=== PATIENT | male | born 1960 | race Two or more races ===

== ENCOUNTER 2018-06-13 11:04 | Emergency (ER) | payer MEDICAID ==
[~2018-06-13] VITALS: Ht 165.1 cm; Wt 56.8 kg
[~2018-06-13 11:04] MED LIST: ALBU18HF2 INH; HYDR-3973 PO; LISI1TAB13 PO; QUET25TA PO; TRAZ-218 PO
[2018-06-13 11:45] LABS: BASOPHILS % (AUTO) 0.8 % (0-1); EOSINOPHILS # (AUTO) 0.1 X10'3 (0-0.9); EOSINOPHILS % (AUTO) 2.5 % (0-6); HEMATOCRIT 43.4 % (42.0-52.0); HEMOGLOBIN 14.5 g/dl (14.0-17.9); LYMPHOCYTES # (AUTO) 1.2 X10'3 (1.1-4.8); LYMPHOCYTES % (AUTO) 23.8 % (21-51); MEAN CORPUSCULAR HEMOGLOBIN 32.9 PG (27.0-31.0); MEAN CORPUSCULAR HGB CONC 33.4 g/dL (33.0-36.5); MEAN CORPUSCULAR VOLUME 98.4 FL (78-98); MEAN PLATELET VOLUME 7.6 FL (7.4-10.4); MONOCYTES # (AUTO) 0.4 X10'3 (0-0.9); MONOCYTES % (AUTO) 7.3 % (2-12); NEUTROPHILS # (AUTO) 3.4 X10'3 (1.8-7.7); NEUTROPHILS % (AUTO) 65.6 % (42-75); PLATELET COUNT 253 X10'3 (140-440); RED BLOOD COUNT 4.41 X10'6 (4.70-6.10); RED CELL DISTRIBUTION WIDTH 13.8 % (11.5-14.5); WHITE BLOOD COUNT 5.1 X10'3 (4.5-11.0)
[2018-06-13 11:55] LABS: ALANINE AMINOTRANSFERASE 29 U/L (12-78); ALBUMIN 3.3 G/DL (3.4-5.0); ALBUMIN/GLOBULIN RATIO 0.9 (1.1-1.5); ALKALINE PHOSPHATASE 96 IU/L (46-116); ANION GAP 5 (8-16); ASPARTATE AMINO TRANSFERASE 21 U/L (10-37); BILIRUBIN,TOTAL 0.1 MG/DL (0.1-1.0); BLOOD UREA NITROGEN 17 MG/DL (7-18); BUN/CREATININE RATIO 22.4 (5.4-32.0); CALCIUM 8.9 MG/DL (8.5-10.1); CHLORIDE 106 MMOL/L (99-107); CREATININE 0.76 MG/DL (0.60-1.10); ETHANOL < 0.010 GM/DL (0.0-0.010); GLUCOSE 86 MG/DL (70-104); POTASSIUM 4.7 MMOL/L (3.5-5.1); SODIUM 144 MMOL/L (135-145); TOTAL CARBON DIOXIDE 33.4 MMOL/L (24-32); TOTAL PROTEIN 7.1 G/DL (6.4-8.2); eGFR > 90 ML/MIN
[2018-06-13 12:55] LABS: URINE AMPHETAMINE SCREEN NEGATIVE (Neg); URINE BARBITUATE SCREEN NEGATIVE (Neg); URINE BENZODIAZEPINES SCREEN NEGATIVE (Neg); URINE CANNABINOID SCREEN NEGATIVE (Neg); URINE COCAINE SCREEN NEGATIVE (Neg); URINE METHADONE SCREEN NEGATIVE (Neg); URINE OPIATE SCREEN NEGATIVE (Neg); URINE PHENCYCLIDINE SCREEN NEGATIVE (Neg)
--- NOTE | 2018-06-13 13:03 | NUR ---
PT IS ALLERGIC TO OLIVES AND ORANGES
--- NOTE | 2018-06-13 13:30 | NUR ---
pt ate all of his lunch. is now resting in bed. pt is very cooperative, pleasant.
--- NOTE | 2018-06-13 14:08 | NUR ---
called to initiate telepsych consult.
--- NOTE | 2018-06-13 15:26 | NUR ---
pt is having telepsych consult now.
--- NOTE | 2018-06-13 16:13 | NUR ---
pt asked for coffee, was given a 2nd cup. pt is resting quietly now.
--- NOTE | 2018-06-13 16:56 | NUR ---
RECEIVED REPORT FROM ENID BELTRAN. Patient arrived to unit, sitting up on edge of bed, no signs of distress noted.
[2018-06-13] MEDS ORDERED: albuterol 2.5 MG/3 ML nebule NEB PRN (17:20)
[2018-06-13] MEDS: LORazepam 1 MG tablet PO PRN (17:53)
[2018-06-13] MEDS: HYDROcodone/acetaminophen 10/325mg tab PO PRN (19:19)
[2018-06-13] MEDS: sertraline 25mg tablet PO SCH (20:48)
[2018-06-13] MEDS: QUEtiapine 25mg tablet PO SCH (20:49)
[2018-06-13] MEDS ORDERED: traZODone 50mg tablet PO SCH (21:00)
--- NOTE | 2018-06-14 06:15 | NUR ---
RECIEVED REPORT FROM ENID WEAVER PT WANTED PAIN PILL FIRST THING HE STATES THAT IS HIS ROUTINE AT HOME
[2018-06-14] MEDS: lisinopril 20mg tablet PO SCH (07:04)
[2018-06-14] MEDS: HYDROchlorothiazide 25mg tablet PO SCH (07:04)
[2018-06-14] MEDS: HYDROcodone/acetaminophen 10/325mg tab PO PRN ×2 (07:04→20:18)
--- NOTE | 2018-06-14 08:15 | NUR ---
PT ASKED FOR ANXIETY MEDICATION , ADMINISTERED PER MD ORDER
[2018-06-14] MEDS: LORazepam 1 MG tablet PO PRN ×2 (09:06→17:11)
--- NOTE | 2018-06-14 10:15 | NUR ---
PT ASKED FOR CELL PHONE FROM LOCKER TO GET PHONE NUMBERS FOR [employer] OF HIS APARTMENTS BC HE HAD A MEETING SCHEDULED WITH THEM, WENT AND GOT PHONE WROTE DOWN THE NUMBERS FOR THE PT THEN PLACED BACK IN THE LOCKER BY THE TECHS
--- NOTE | 2018-06-14 12:30 | NUR ---
pt resting in bed , will continue to monitor
--- NOTE | 2018-06-14 14:30 | NUR ---
pt resting quieytly in bed
--- NOTE | 2018-06-14 16:30 | NUR ---
pt resting quietly in bed
--- NOTE | 2018-06-14 18:06 | NUR ---
Report given to ENID Branham
--- NOTE | 2018-06-14 18:27 | NUR ---
Assumed care. Pt sitting in bed eating dinner. Asking for pain meds but not due at this time. Will cont to monitor.
[2018-06-14] MEDS: QUEtiapine 25mg tablet PO SCH (20:19)
[2018-06-14] MEDS: sertraline 25mg tablet PO SCH (20:36)
--- NOTE | 2018-06-14 20:47 | NUR ---
Pt took NOC meds without issue. Pt now sleeping no distress noted. Will cont to monitor
--- NOTE | 2018-06-15 00:03 | NUR ---
Pt sleeping no apparent distress. Will cont to monitor.
--- NOTE | 2018-06-15 02:20 | NUR ---
Pt sleeping no apparent distress. Will cont to monitor.
--- NOTE | 2018-06-15 07:21 | NUR ---
Spoke with dr garcia regarding telepsyc recommendations to med changes. stated no change to meds or additional labs at this time. Order to continue home prozac dose of 60mg qd. Order placed will admin once available.
[2018-06-15] MEDS: HYDROchlorothiazide 25mg tablet PO SCH (07:26)
[2018-06-15] MEDS: HYDROcodone/acetaminophen 10/325mg tab PO PRN ×2 (07:27→20:15)
[2018-06-15] MEDS: lisinopril 20mg tablet PO SCH (07:27)
[2018-06-15] MEDS: FLUoxetine 20mg capsule PO SCH (07:31)
[2018-06-15] MEDS: LORazepam 1 MG tablet PO PRN ×3 (09:02→20:15)
--- NOTE | 2018-06-15 09:15 | NUR ---
PT SITTING UP IN BED. NO DISTRESS NOTED.
--- NOTE | 2018-06-15 10:05 | NUR ---
PT MAKING BED. STEADY GAIT. NO ASSISTANCE NEEDED.
--- NOTE | 2018-06-15 11:32 | NUR ---
PT SITTING UP IN BED READING MAGAZINE. NO DISTRESS NOTED. WILL CONTINUE TO MONITOR.
--- NOTE | 2018-06-15 14:06 | NUR ---
PT REQUESTED TO SPEAK TO DR SCHERER REGARDING HIS MEDICATIONS. NOTIFIED DR. SCHERER. STATED WILL COME AND SPEAK TO PT.
--- NOTE | 2018-06-15 18:59 | NUR ---
Assumed care pt found resting in bed no apparent distress. Will cont to monitor
[2018-06-15] MEDS: quetiapine 100mg tablet PO SCH (20:16)
[2018-06-15] MEDS: sertraline 25mg tablet PO SCH (20:16)
--- NOTE | 2018-06-15 20:59 | NUR ---
Pt sleeping at this time. No apparent distress. Mental health will see pt tomorrow when she is more awake and lucid. Will cont to monitor
--- NOTE | 2018-06-16 01:15 | NUR ---
Pt sleeping will cont to monitor
--- NOTE | 2018-06-16 03:07 | NUR ---
Pt sleeping will cont to monitor
[2018-06-16] MEDS: HYDROcodone/acetaminophen 10/325mg tab PO PRN ×2 (07:51→19:16)
[2018-06-16] MEDS: HYDROchlorothiazide 25mg tablet PO SCH (07:52)
[2018-06-16] MEDS: lisinopril 20mg tablet PO SCH (07:53)
[2018-06-16] MEDS: FLUoxetine 20mg capsule PO SCH (07:55)
[2018-06-16] MEDS: LORazepam 1 MG tablet PO PRN ×2 (10:02→18:03)
--- NOTE | 2018-06-16 16:43 | NUR ---
Nursing Note: Pt laying in bed on back; requested warm blanket; resting comfortably. RR even/unlabored. No s/s distress noted
--- NOTE | 2018-06-16 18:12 | NUR ---
NURSE NOTE: pt administered Ativan 1 mg per order. Pt resting comfortably in bed. No s/s distress noted at this time.
[2018-06-16] MEDS: quetiapine 100mg tablet PO SCH (19:15)
[2018-06-16] MEDS: sertraline 25mg tablet PO SCH (19:15)
--- NOTE | 2018-06-16 23:00 | NUR ---
Pt sleeping quietly in bed on his back, snoring lightly. Respirations even and unlabored.
--- NOTE | 2018-06-17 00:31 | NUR ---
Pt sat up and looked around at his environment. Pt sat quietly for approx 20 min then fell asleep on his back. Respirations even and unlabored.
--- NOTE | 2018-06-17 02:08 | NUR ---
Pt sleeping on left side. Respirations even and unlabored.
--- NOTE | 2018-06-17 04:09 | NUR ---
Pt sleeping on left side. Respirations even and unlabored.
[2018-06-17] MEDS: HYDROcodone/acetaminophen 10/325mg tab PO PRN ×2 (06:01→18:11)
--- NOTE | 2018-06-17 06:29 | NUR ---
PT HYPOTENSIVE AT 85/49 :HR 61. ER AWARE.
--- NOTE | 2018-06-17 06:40 | NUR ---
Received report from ENID Santacruz. Patient resting comfortably in bed at this time.
--- NOTE | 2018-06-17 06:58 | NUR ---
Patient's norco was not re-assessed on the and I was not here when the re-asssessment was due.
--- NOTE | 2018-06-17 07:30 | NUR ---
Patients blood pressure is 72/41 with the automatic cuff. Patient is asymptomatic but I will hold off on his blood pressure medications and let the MD know.
[2018-06-17] MEDS: lisinopril 20mg tablet PO SCH (08:00)
[2018-06-17] MEDS: HYDROchlorothiazide 25mg tablet PO SCH (08:00)
--- NOTE | 2018-06-17 08:00 | NUR ---
Re-checked patients' blood pressure with a manual and it was 80/50. The patient has also been asking for Ativan but with his pressure low I haven't given him any. I notified Dr. Lopez and asked him about the Ativan and he said to hold off. He also said to hold the blood pressure medications and re-evaluate.
[2018-06-17] MEDS: FLUoxetine 20mg capsule PO SCH (08:10)
--- NOTE | 2018-06-17 09:45 | NUR ---
Patients' blood pressure was checked again becuase he is wanting Ativan. I explained why he couldn't have it earlier so we waited and re-checked his pressure. It is now 80/44. He went back to his room and went to sleep. I re-iterated that he still can't have the Ativan with a BP that is that low.
--- NOTE | 2018-06-17 10:07 | NUR ---
PT IS REQUESTING ATIVAN OR SERAQUEL, I EXPLAINED TO PT THAT WITH A BP OF 80/50 THAT HE CAN NOT HAVE THE MEDICATION NOW.
--- NOTE | 2018-06-17 10:35 | NUR ---
PT SLEEPING LAYING ON HIS RIGHT SIDE, RESPIRATIONS EVEN AND UNLABORED. NO DISTRESS NOTED AT THIS TIME.
--- NOTE | 2018-06-17 12:35 | NUR ---
Marissa went and got a different vitals machine because his BP was still low. The new machine read 101/52 so I gave him the Ativan. I think the issue is his medication reconciliation. His med-rec says he takes 25mg of hydochlorothiazide and 20mg of Lisinopril, but he says that he only takes 5mg of Lisinopril and his medication tracker also says he's only picked up a 5mg prescription for Lisinopril in the past. Will discuss with the MD.
[2018-06-17] MEDS: LORazepam 1 MG tablet PO PRN (12:44)
[2018-06-17] MEDS ORDERED: LISI-642 PO (14:54)
--- NOTE | 2018-06-17 18:33 | NUR ---
Patient report given to ENID Arellano.
--- NOTE | 2018-06-17 19:05 | NUR ---
Patient asked for seroquel for sleep; informed patient that it will be given when its due. Patient verbalized understanding.
[2018-06-17] MEDS: quetiapine 100mg tablet PO SCH (20:10)
[2018-06-17] MEDS: sertraline 25mg tablet PO SCH (20:10)
--- NOTE | 2018-06-17 20:35 | NUR ---
Patient got up to throw his blanket in the laundry bin; advised to let us know when he gets up or out of bed.
--- NOTE | 2018-06-17 22:10 | NUR ---
Patient resting comfortably with 16 even and unlabored respirations.
--- NOTE | 2018-06-17 23:55 | NUR ---
Patient resting comfortably, in no apparent distress.
--- NOTE | 2018-06-18 01:07 | NUR ---
Pt asleep on left side. RR 13, even and unlabored. No apparent distress at this time.
--- NOTE | 2018-06-18 02:09 | NUR ---
Patient laying on left side, 16 even and unlabored respirations.
--- NOTE | 2018-06-18 03:35 | NUR ---
Patient laying supine with eyes closed, 16 even and unlabored respirations. In no apparent distress.
--- NOTE | 2018-06-18 04:52 | NUR ---
Patient asleep with 14 even and unlabored respirations. In no apparent distress.
[2018-06-18] MEDS: HYDROcodone/acetaminophen 10/325mg tab PO PRN ×2 (05:44→18:11)
--- NOTE | 2018-06-18 06:19 | NUR ---
Reported off to ENID Moore. Patient resting comfortably
--- NOTE | 2018-06-18 06:26 | NUR ---
Assumed care of patient. Patient sleeping in bed, respirations even. No distress noted.
--- NOTE | 2018-06-18 07:19 | NUR ---
Patient awake and states he is starting to feel agitated, requesting ativan. Patient ambulated to restroom with steady gait. Patient sitting up in bed.
[2018-06-18] MEDS: LORazepam 1 MG tablet PO PRN ×2 (07:24→16:32)
[2018-06-18] MEDS: FLUoxetine 20mg capsule PO SCH (07:24)
--- NOTE | 2018-06-18 10:07 | NUR ---
Patient reading magazines in bed, calm and no other needs at this time.
--- NOTE | 2018-06-18 10:52 | NUR ---
Patient given snack per request.
[2018-06-18] MEDS ORDERED: HYDROcodone/acetaminophen 10/325mg tab PO PRN (11:05)
--- NOTE | 2018-06-18 12:04 | NUR ---
Patient awake sitting in bed. occassionally ambulates to restroom with steady gait. no needs at this time.
--- NOTE | 2018-06-18 14:44 | NUR ---
Patient ate lunch and sitting in bed talking with staff. Patient calm and cooperative. Patient denies any need at this time.
--- NOTE | 2018-06-18 16:27 | NUR ---
Patient requesting ativan, states, "I'm feeling anxious." patient sitting up in bed, walks to restroom often. Patient cooperative.
--- NOTE | 2018-06-18 17:00 | NUR ---
Patient awake in bed comfortable, no needs at this time.
[2018-06-18] MEDS: quetiapine 100mg tablet PO SCH (20:19)
[2018-06-18] MEDS: sertraline 25mg tablet PO SCH (20:19)
[2018-06-18] MEDS: QUEtiapine 25mg tablet PO SCH (20:24)
[2018-06-18] MEDS: traZODone 50mg tablet PO SCH (20:24)
--- NOTE | 2018-06-18 20:25 | NUR ---
Patient states he does not take trazodone and only takes 400mg of seroquel. Trazodone will be held at the patient's request. He will also be given his regularly given 400mg of seroquel rather than 450mg. Dr. Fong ordered this medication but it is unclear why and was not presented to me in report. The patient whishes to take his usual dose.
--- NOTE | 2018-06-18 20:42 | NUR ---
Patient is resting comfortably in bed.
--- NOTE | 2018-06-18 20:55 | NUR ---
Patient was found to be attempting to take belongings from sitter in the next room through the curtains. Patient states, "I thought it was my stuff." Belongings procured and patient instructed that his belongings are locked away.
--- NOTE | 2018-06-18 22:37 | NUR ---
Patient sitting upright in bed quietly.
--- NOTE | 2018-06-18 23:21 | NUR ---
Patient remains awake, lying quietly in bed.
--- NOTE | 2018-06-19 01:13 | NUR ---
PATIENT SITTING WITH HOB AT 30 DEGREES NO COVERS EYES CLOSED RR EVEN UN LABORED NO S/S OF ACUTE STRESS AT THIS TIME
--- NOTE | 2018-06-19 03:12 | NUR ---
PATIENT LYING SUPINE IN BED NO COVERS EYES CLOSED RR EVEN UN -LABORED NO OBSERVABLE S/S OF ACUTE STRESS AT THIS TIME
--- NOTE | 2018-06-19 05:13 | NUR ---
PATIENT LYING ON RIGHT SIDE IN BED NO COVERS EYES CLOSED RR EVEN UN LABORED NO OBSERVABLE S/S OF ACUTE STRESS AT THIS TIME
--- NOTE | 2018-06-19 05:51 | NUR ---
PATIENT UP TO USE THE REST ROOM
[2018-06-19] MEDS: HYDROcodone/acetaminophen 10/325mg tab PO PRN ×2 (06:41→19:16)
[2018-06-19] MEDS: LORazepam 1 MG tablet PO PRN ×2 (06:41→17:49)
[2018-06-19] MEDS: FLUoxetine 20mg capsule PO SCH (07:40)
[2018-06-19] MEDS: lisinopril 5mg tablet PO SCH (07:40)
--- NOTE | 2018-06-19 13:04 | NUR ---
PT TX FROM ER14 TO OF.
[2018-06-19] MEDS: sertraline 25mg tablet PO SCH (20:16)
[2018-06-19] MEDS: QUEtiapine 25mg tablet PO SCH (20:16)
[2018-06-19] MEDS: quetiapine 100mg tablet PO SCH (20:17)
[2018-06-19] MEDS: traZODone 50mg tablet PO SCH (20:17)
--- NOTE | 2018-06-19 20:52 | NUR ---
PT IS SLEEPING ON RIGHT SIDE.
--- NOTE | 2018-06-19 21:49 | NUR ---
PT'S BED IS AT 30DEGREES, PT APPEARS TO BE SLEEPING ON LEFT SIDE, RR UNLABORED.
--- NOTE | 2018-06-19 23:13 | NUR ---
pt is asleep, rr 14 unlabored
--- NOTE | 2018-06-20 00:41 | NUR ---
pt was up to use the restroom, back to bed afterwards
--- NOTE | 2018-06-20 02:58 | NUR ---
pt sleeping on back with head of bed at 30 degrees. pt's rr is normal, unlabored.
--- NOTE | 2018-06-20 05:17 | NUR ---
pt is sleeping, rr unlabored, will continue to monitor.
[2018-06-20] MEDS ORDERED: QUET50TA15 PO (06:40)
[2018-06-20] MEDS ORDERED: QUET300T3 PO (06:40)
[2018-06-20] MEDS ORDERED: FLUO40CA PO (06:42)
[2018-06-20] MEDS: HYDROcodone/acetaminophen 10/325mg tab PO PRN ×2 (06:48→18:52)
--- NOTE | 2018-06-20 06:56 | NUR ---
PT AMBULATED WITH STEADY GAIT TO NURSES STATION INQUIRING ABOUT PAIN MEDICATIONS, PT MEDICATED WITH PAIN MEDICATIONS PER ORDERS.
--- NOTE | 2018-06-20 07:57 | NUR ---
TELEPSYCH DR SHAH SPEAKING WITH PT VIA TELEPSYCH MONITOR NOW TO EVALUATE AND MAKE RECOMMENDATION OF MEDICATIONS
--- NOTE | 2018-06-20 08:17 | NUR ---
PT JAKEHED SPEAKING WITH TELEPSYCH DOCTOR AND IS NOW SITTING UP IN BED EATING BREAKFAST. WILL MEDICATE PT AFTER I HAVE SPOKEN WITH PSYCH DOCTOR REGARDING MEDICATION RECOMMENDATIONS
[2018-06-20] MEDS ORDERED: LORA1TAB PO (08:26)
[2018-06-20] MEDS ORDERED: PRAZ2CAP2 PO (08:27)
[2018-06-20] MEDS ORDERED: ALBU8HFA PO (08:42)
[2018-06-20] MEDS ORDERED: QUET-1 PO (08:44)
[2018-06-20] MEDS ORDERED: FLUO20CA39 PO (08:45)
--- NOTE | 2018-06-20 08:48 | NUR ---
CALLED [facility] [phone] DR ADRIAN PT CASE MANAGED FOR PSYCH DOCTOR OFFICE, CONFIRMED CURRENT MEDICATIONS PT IS TAKING, ALSO SPOKE WITH DR SHAH TELEPSYCH DOCTOR AND SHE IS RECOMMENDING MEDICATIONS TO REMAIN THE SAME WHAT PT HAS BEEN TAKING, TAPER ZOLOFT 25 MG TONIGHT AND THEN DISCONTINUE. GAVE TO DR HO TO SIGN AND WILL FAX TO PHARMACY.
[2018-06-20] MEDS: lisinopril 5mg tablet PO SCH (09:06)
[2018-06-20] MEDS: FLUoxetine 20mg capsule PO SCH (09:06)
--- NOTE | 2018-06-20 09:52 | NUR ---
MARY WITH [facility] DISCUSSED [facility] PT THAT HE MAY BE RELEASED TOMORROW TO GO TO PREVIOUSLY SCHEDUELED PSYCH DOCTOR APPOINTMENT. PT CURRENTLY DENIES SI.
[2018-06-20] MEDS: LORazepam 1 MG tablet PO PRN ×2 (09:56→18:53)
--- NOTE | 2018-06-20 09:58 | NUR ---
PT REPORTS FEELING INCREASED ANXIETY, MEDICATED PT WITH 1 MG PRN ATIVAN PER ORDERS.
--- NOTE | 2018-06-20 10:10 | NUR ---
FAXED CORRECTED AND COMPLETELY UP TO DATE AFTER SPEAKING WITH PSYCH DOCOTOR'S SEARCH LEAD, AND TELEPSYCH RECOMMENDATION/REVIEW.
[2018-06-20] MEDS ORDERED: LORazepam 1 MG tablet PO PRN (10:15)
[2018-06-20] MEDS ORDERED: PROAIR PO PRN (10:15)
--- NOTE | 2018-06-20 10:59 | NUR ---
CALLED PHARMACIST TO HAVE TRAZADONE REMOVED IT WAS NOT ON MOST RECENT MED REC PT HAS NOT BEEN TAKING FOR SOME TIME NOW.
--- NOTE | 2018-06-20 12:08 | NUR ---
PT HAS APPOINTMENT WITH DR ADRIAN TOMORROW AT 1300 PER MARY WITH [facility]
--- NOTE | 2018-06-20 12:35 | NUR ---
RELIEVING RN FOR LUNCH, PT IS RESTING QUIETLY ON BED, AWAKE, CALM AND COOPERATIVE, RESP EVEN AND UNLABORED
--- NOTE | 2018-06-20 15:13 | NUR ---
PT SITTING UP IN BED, NO S/S OF DISTRESS, DISCOMFORT OR AGITATION AT THIS TIME.
--- NOTE | 2018-06-20 17:41 | NUR ---
REVIEWED PT NORCO AND ATIVAN TIME FRAME, DISCUSSED WITH PT TO GIVE BOTH OF THOSE MEDICATONS AT 1850, PT IS AGREEABLE TO PLAN WILL RELAY THAT TO NIGHT NURSE.
--- NOTE | 2018-06-20 18:33 | NUR ---
Patient is A&O x3, MIRANDA and is appropriate, he is sitting up in bed eating dinner w/o problem. I will continue to monitor.
[2018-06-20] MEDS ORDERED: sertraline 25mg tablet PO ONE (20:00)
[2018-06-20] MEDS: prazosin 1mg capsule PO SCH (20:09)
[2018-06-20] MEDS: quetiapine 100mg tablet PO SCH (20:10)
[2018-06-20] MEDS: QUEtiapine 25mg tablet PO SCH (20:11)
[2018-06-20] MEDS ORDERED: quetiapine 100mg tablet PO SCH (21:00)
[2018-06-21] MEDS: HYDROcodone/acetaminophen 10/325mg tab PO PRN (05:34)
[2018-06-21 05:47] VITALS: BP 114/83
[2018-06-21] MEDS: lisinopril 5mg tablet PO SCH (07:14)
[2018-06-21] MEDS: prazosin 1mg capsule PO SCH (07:14)
[2018-06-21] MEDS: FLUoxetine 20mg capsule PO SCH (07:14)
[2018-06-21] MEDS: LORazepam 1 MG tablet PO PRN (07:16)
[2018-06-21] MEDS ORDERED: FLUoxetine 20mg capsule PO SCH (08:00)
== END 2018-06-21 12:29 | disposition home or self-care (01) ==
LOC: ER 11:05
DX: R45.851 Suicidal ideations (principal); F32.9 Major depressive disorder, single episode, unspecified; I10 Essential (primary) hypertension; F28 Other psychotic disorder not due to a substance or known physiological condition; F15.90 Other stimulant use, unspecified, uncomplicated; Z98.890 Other specified postprocedural states; Z79.899 Other long term (current) drug therapy; Z88.8 Allergy status to other drugs, medicaments and biological substances
CPT/HCPCS: 36415; 80053; 80305; 80320; 85025; 99285

== ENCOUNTER 2019-09-12 10:07 | Emergency (ER) | payer MEDICAID ==
[~2019-09-12] VITALS: Ht 175.3 cm; Wt 52.7 kg
[~2019-09-12 10:07] MED LIST changes: -ALBU18HF2 INH; +ALBU8HFA PO; +FLUO20CA39 PO; +LISI-642 PO; -LISI1TAB13 PO; +LORA1TAB PO; +PRAZ2CAP2 PO; +QUET-1 PO; -QUET25TA PO; -TRAZ-218 PO
[2019-09-12 11:00] LABS: BASOPHILS # (AUTO) 0.1 X10'3 (0-0.2); EOSINOPHILS # (AUTO) 0.1 X10'3 (0-0.9); EOSINOPHILS % (AUTO) 0.7 % (0-6); HEMATOCRIT 44.2 % (42.0-52.0); HEMOGLOBIN 14.7 g/dl (14.0-17.9); LYMPHOCYTES # (AUTO) 1.3 X10'3 (1.1-4.8); LYMPHOCYTES % (AUTO) 16.2 % (21-51); MEAN CORPUSCULAR HEMOGLOBIN 33.1 PG (27.0-31.0); MEAN CORPUSCULAR HGB CONC 33.2 g/dL (33.0-36.5); MEAN CORPUSCULAR VOLUME 99.8 FL (78-98); MONOCYTES # (AUTO) 0.5 X10'3 (0-0.9); MONOCYTES % (AUTO) 5.5 % (2-12); NEUTROPHILS # (AUTO) 6.3 X10'3 (1.8-7.7); NEUTROPHILS % (AUTO) 76.6 % (42-75); PLATELET COUNT 513 X10'3 (140-440); RED BLOOD COUNT 4.43 X10'6 (4.70-6.10); WHITE BLOOD COUNT 8.3 X10'3 (4.5-11.0)
[2019-09-12 11:12] LABS: ALANINE AMINOTRANSFERASE 72 U/L (12-78); ALBUMIN 3.2 G/DL (3.4-5.0); ALBUMIN/GLOBULIN RATIO 0.7 (1.1-1.5); ALKALINE PHOSPHATASE 403 IU/L (46-116); ANION GAP 5 (8-16); ASPARTATE AMINO TRANSFERASE 25 U/L (10-37); BILIRUBIN,TOTAL 0.4 MG/DL (0.1-1.0); BLOOD UREA NITROGEN 12 MG/DL (7-18); BUN/CREATININE RATIO 10.5 (5.4-32.0); CALCIUM 9.1 MG/DL (8.5-10.1); CHLORIDE 104 MMOL/L (99-107); CREATININE 1.14 MG/DL (0.60-1.10); GLUCOSE 99 MG/DL (70-104); POTASSIUM 3.9 MMOL/L (3.5-5.1); SODIUM 138 MMOL/L (135-145); TOTAL CARBON DIOXIDE 29.4 MMOL/L (24-32); eGFR 66 ML/MIN
[2019-09-12 11:21] LABS: ETHANOL < 0.010 GM/DL (0.0-0.010)
[2019-09-12 12:17] LABS: CLARITY,URINE SLIGHTLY CLOUDY (Clear); COLOR,URINE YELLOW (Yellow); GLUCOSE, URINE NEGATIVE (Neg); KETONES,URINE TRACE mg/dl (Neg); LEUKOCYTE ESTERASE ,URINE NEGATIVE (Neg); NITRITES, URINE NEGATIVE (Neg); OCCULT BLOOD,URINE LARGE (Neg); PROTEIN,URINE NEGATIVE (Neg); UROBILINOGEN,URINE 0.2 E.U/dL (0.2-1.0)
[2019-09-12 12:26] LABS: UA COLLECTION TYPE URINAL
[2019-09-12 12:27] LABS: CELLULAR CAST 0-4 /LPF (NEGATIVE); HYALINE CASTS 0-3 /LPF (NEGATIVE); MUCUS STRANDS MANY /LPF (Neg); SQUAMOUS EPITHELIAL CELL,UR FEW /LPF (FEW)
[2019-09-12 12:28] LABS: BACTERIA,URINE 1+ /HPF (Neg); WBC,URINE 0-4 /HPF (0-4)
[2019-09-12] MEDS ORDERED: SULF1TAB49 PO (12:28)
[2019-09-12] MEDS ORDERED: CIPR750T4 PO (12:28)
[2019-09-12 12:29] LABS: URINE AMPHETAMINE SCREEN NEGATIVE (Neg); URINE BARBITUATE SCREEN NEGATIVE (Neg); URINE BENZODIAZEPINES SCREEN POSITIVE (Neg); URINE CANNABINOID SCREEN POSITIVE (Neg); URINE COCAINE SCREEN NEGATIVE (Neg); URINE METHADONE SCREEN NEGATIVE (Neg); URINE OPIATE SCREEN POSITIVE (Neg); URINE PHENCYCLIDINE SCREEN NEGATIVE (Neg)
[2019-09-12] MEDS ORDERED: MORP10CA11 PO (12:34)
[2019-09-12] MEDS ORDERED: TRAZ300T2 PO (13:01)
[2019-09-12] MEDS ORDERED: HYDR-4353 PO (13:01)
[2019-09-12] MEDS ORDERED: PRAZ1CAP2 PO (13:02)
--- NOTE | 2019-09-12 13:09 | NUR ---
pt sent to [facility] rec completed.
[2019-09-12] MEDS ORDERED: VAL5T PO (13:24)
[2019-09-12] MEDS ORDERED: HYDR-3973 PO (13:24)
--- NOTE | 2019-09-12 13:25 | NUR ---
Patient sleeping. RN asked patient where his medication is since he hasn't taken it in 2 days. Patient states it is in his safe. RN asked patient why he hasn't taken it. Patient states it's not working. But patient is asking for pain medication which is the same medication patient is taking. RN wondering if patient is really over taking meds and he is out of pain meds. RN verified meds from [facility], narcotics from Dr. Benavidez. Patient is also getting Diazepam from Dr. Mcneal. Continue to monitor.
[2019-09-12] MEDS ORDERED: MORP-92 PO (13:27)
[2019-09-12] MEDS: HYDROcodone/acetaminophen 10/325mg tab PO PRN ×2 (15:05→20:14)
--- NOTE | 2019-09-12 16:56 | NUR ---
RN called and verified Prazosin and Trazodone dose, Lynn Culp [phone]. Added to meds. Patient is feeling a little anxious. RN to give Valium to patient.
[2019-09-12] MEDS: diazepam 5mg tablet PO PRN (17:01)
--- NOTE | 2019-09-12 17:05 | NUR ---
Patient states he is still feeling suicidal. Patient calm. No plan at this time. Continue to monitor.
[2019-09-12] MEDS: sulfamethoxazole/trimethoprim DS (800/160mg) tablet PO SCH (20:13)
[2019-09-12] MEDS: traZODone 150mg tablet PO SCH (20:13)
[2019-09-12] MEDS: prazosin 1mg capsule PO SCH (20:13)
[2019-09-12] MEDS: ciprofloxacin 250mg tablet PO SCH (22:00)
--- NOTE | 2019-09-12 22:09 | NUR ---
RELIEVING PRIMARY RNJOSIE. PT APPEARS TO BE SLEEPING , CURRENTLY LYING ON HIS LEFT SIDE WITH BLANKETS COVERING TO HIS SHOULDERS. RR 14 AND UNLABORED. SITTER AND RN WITHIN VIEW OF PT AAT.
--- NOTE | 2019-09-12 22:23 | NUR ---
PT APPEARS TO BE SLEEPING, NO S/S DISTRESS NOTED.
--- NOTE | 2019-09-12 23:00 | NUR ---
PT APPEARS TO BE SLEEPING, NO S/S DISTRESS NOTED.
--- NOTE | 2019-09-13 00:06 | NUR ---
PT IS SLEEPING, NO S/S OF DISTRESS NOTED.
--- NOTE | 2019-09-13 01:35 | NUR ---
pt appears to be sleeping, no s/s of distress noted.
--- NOTE | 2019-09-13 07:00 | NUR ---
Pt came up to nurses station requesting pain medication. Stated to pt that pain medication was due at 0800.
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
--- NOTE | 2019-09-13 07:25 | NUR ---
Pt now requesting coffee. Informed him it would come with his breakfast.
[2019-09-13] MEDS: morphine ER 15mg tablet PO SCH (07:48)
[2019-09-13] MEDS: sulfamethoxazole/trimethoprim DS (800/160mg) tablet PO SCH ×2 (07:48→20:17)
[2019-09-13] MEDS: ciprofloxacin 250mg tablet PO SCH ×2 (10:11→22:06)
[2019-09-13] MEDS: HYDROcodone/acetaminophen 10/325mg tab PO PRN ×2 (10:11→16:05)
[2019-09-13] MEDS: diazepam 5mg tablet PO PRN (16:08)
--- NOTE | 2019-09-13 16:14 | NUR ---
Patient reclining in bed. No distress observed. Pain just given pain and anti-anxiety med. Continue to monitor.
--- NOTE | 2019-09-13 19:23 | NUR ---
Pt moved from Overflow to ED bed 14, assumed care of the patient. Pt is calm and cooperative.
[2019-09-13] MEDS: prazosin 1mg capsule PO SCH (20:17)
[2019-09-13] MEDS: traZODone 150mg tablet PO SCH (20:18)
--- NOTE | 2019-09-13 20:22 | NUR ---
Pt resting, no complaints other than wanting more pain medication.
--- NOTE | 2019-09-13 21:20 | NUR ---
Pt resting with even and unlabored respirations.
--- NOTE | 2019-09-13 22:24 | NUR ---
Pt ambulatory with steady gait to the restroom. Pt is requesting additional pain medication. Explainted to the patient that the next dose is not due until midnight.
[2019-09-14] MEDS: HYDROcodone/acetaminophen 10/325mg tab PO PRN ×4 (01:20→22:26)
--- NOTE | 2019-09-14 01:20 | NUR ---
PT MEDICATED FOR RIB PAIN WITH PRN NORCO. HE IS ALSO GIVEN WARM BLANKETS. PT DENIES OTHER NEEDS AT THIS TIME. WILL CONTINUE TO MONITOR.
--- NOTE | 2019-09-14 05:49 | NUR ---
NO ISSUES OVERNIGHT. PT WAS POLITE AND COOPERATIVE WITH STAFF. HE SLEPT ALL NIGHT AWAKENING ONCE FOR PAIN MEDICATION.
[2019-09-14] MEDS: morphine ER 15mg tablet PO SCH (08:12)
[2019-09-14] MEDS: sulfamethoxazole/trimethoprim DS (800/160mg) tablet PO SCH ×2 (08:12→20:12)
[2019-09-14] MEDS: ciprofloxacin 250mg tablet PO SCH ×2 (09:09→22:27)
--- NOTE | 2019-09-14 10:27 | NUR ---
pt moved from room 14 to 26 recived report assumed care
--- NOTE | 2019-09-14 12:24 | NUR ---
pt up walking around asking for pain meds informed him that it is not quite time and asking for food offered some snacks and informed him lunch should be here any min. he was ok with that and went back to his bed
--- NOTE | 2019-09-14 16:30 | NUR ---
norco was given for pain pt now in bed resting rise and fall of chest noted
--- NOTE | 2019-09-14 17:19 | NUR ---
up walking around asking for something to read
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
[2019-09-14] MEDS: lactobacillus rhamnosus 10,000 MMU CELLS/CAPSULE PO SCH (20:12)
[2019-09-14] MEDS: prazosin 1mg capsule PO SCH (20:13)
[2019-09-14] MEDS: traZODone 150mg tablet PO SCH (20:13)
--- NOTE | 2019-09-14 22:59 | NUR ---
Patient is sleeping again. Mid fowlers position in bed.
--- NOTE | 2019-09-15 04:34 | NUR ---
Patient is sleeping on his right side.
[2019-09-15] MEDS: sulfamethoxazole/trimethoprim DS (800/160mg) tablet PO SCH ×2 (07:02→20:21)
[2019-09-15] MEDS: morphine ER 15mg tablet PO SCH (07:03)
[2019-09-15] MEDS: lactobacillus rhamnosus 10,000 MMU CELLS/CAPSULE PO SCH ×2 (07:03→20:21)
--- NOTE | 2019-09-15 08:01 | NUR ---
resting in bed
[2019-09-15] MEDS: HYDROcodone/acetaminophen 10/325mg tab PO PRN ×3 (08:27→20:21)
[2019-09-15] MEDS: ciprofloxacin 250mg tablet PO SCH ×2 (09:31→21:19)
[2019-09-15] MEDS: diazepam 5mg tablet PO PRN (09:31)
--- NOTE | 2019-09-15 09:37 | NUR ---
Patient reported anxiety. RN gave patient his PRN Valium. Continue to monitor.
--- NOTE | 2019-09-15 14:01 | NUR ---
Resting in bed ate lunch
--- NOTE | 2019-09-15 17:03 | NUR ---
In bed resting
[2019-09-15] MEDS: traZODone 150mg tablet PO SCH (20:21)
[2019-09-15] MEDS: prazosin 1mg capsule PO SCH (21:20)
--- NOTE | 2019-09-16 04:00 | NUR ---
ASSUMED CARE FROM TINA ROSSI. PT CONTINUES TO REST COMFORTABLY WITH NO SIGNS OF DISTRESS NOTED. RR REGULAR. WILL CONTINUE TO MONITOR.
--- NOTE | 2019-09-16 05:19 | NUR ---
PT CONTINUES TO SLEEP AND DOES NOT APPEAR TO BE IN ANY DISTRESS. RR REGULAR. WILL CONTINUE TO MONITOR.
--- NOTE | 2019-09-16 06:35 | NUR ---
Patient asking for pain medication. No distress observed. Continue to monitor.
[2019-09-16] MEDS: HYDROcodone/acetaminophen 10/325mg tab PO PRN ×3 (06:54→20:42)
--- NOTE | 2019-09-16 08:35 | NUR ---
Patient calm and resting in room. No distress observed. Continue to monitor.
[2019-09-16] MEDS: lactobacillus rhamnosus 10,000 MMU CELLS/CAPSULE PO SCH ×2 (08:39→20:40)
[2019-09-16] MEDS: sulfamethoxazole/trimethoprim DS (800/160mg) tablet PO SCH ×2 (08:39→20:44)
[2019-09-16] MEDS: morphine ER 15mg tablet PO SCH (10:13)
[2019-09-16] MEDS: ciprofloxacin 250mg tablet PO SCH ×2 (10:14→22:12)
[2019-09-16] MEDS: diazepam 5mg tablet PO PRN (10:56)
--- NOTE | 2019-09-16 13:18 | NUR ---
Patient eating lunch. No distress observed. Patient states he is still feeling suicidal. Continue to monitor.
--- NOTE | 2019-09-16 14:25 | NUR ---
Patient brought his chair over to watch the movie. Patient chatting and pleasant. No distress observed. Continue to monitor.
--- NOTE | 2019-09-16 15:32 | NUR ---
Patient finished watching the movie and took his chair back to his room. No distress observed. Continue to monitor.
--- NOTE | 2019-09-16 17:37 | NUR ---
Patient reclining in bed. No distress observed. Continue to monitor.
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
--- NOTE | 2019-09-16 20:00 | NUR ---
Patient is resting quietly, intermittent left ribcage pain, too early for Rx [place]. Patient advised, he exhibits understanding.
[2019-09-16] MEDS: traZODone 150mg tablet PO SCH (20:43)
[2019-09-16] MEDS: prazosin 1mg capsule PO SCH (20:44)
[2019-09-16] MEDS: Melatonin 3mg tablet PO SCH (20:44)
--- NOTE | 2019-09-16 21:00 | NUR ---
Melatonin added to patients sleep medications per patients request because of problems sleeping.
--- NOTE | 2019-09-16 21:10 | NUR ---
Patient resting quietly. He has been compliant with Rx medications. Patient has been given a wash cloth, a towell, and clean scrubs. Patient states he will clean self in the am.
--- NOTE | 2019-09-16 22:00 | NUR ---
Patient is sleeping off and on in bed. No distress save for ribcage pain.
--- NOTE | 2019-09-17 00:49 | NUR ---
Breaking primary RN, pt. resting quietly in bed on right side, respirations WNL, no signs of distress.
--- NOTE | 2019-09-17 02:05 | NUR ---
Patient sleeping, low fowlers position in bed. Frequent rounding for patient safety.
--- NOTE | 2019-09-17 03:30 | NUR ---
Patient awake, up to void, returns to bed. Ambulates without problem, normal gait.
[2019-09-17] MEDS: HYDROcodone/acetaminophen 10/325mg tab PO PRN ×3 (04:56→20:50)
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
--- NOTE | 2019-09-17 05:36 | NUR ---
Patient sleeping quietly on left side.
--- NOTE | 2019-09-17 06:42 | NUR ---
Patient sleeping on right side. No distress observed. Continue to monitor.
[2019-09-17] MEDS: morphine ER 15mg tablet PO SCH (08:14)
[2019-09-17] MEDS: lactobacillus rhamnosus 10,000 MMU CELLS/CAPSULE PO SCH ×2 (08:14→20:50)
[2019-09-17] MEDS: sulfamethoxazole/trimethoprim DS (800/160mg) tablet PO SCH ×2 (08:14→20:49)
--- NOTE | 2019-09-17 08:33 | NUR ---
Patient awakened for breakfast. Meds taken. No distress observed. Continue to monitor.
--- NOTE | 2019-09-17 09:20 | NUR ---
Patient came up to nurse's station and asked "how do I get out of here?" RN asked what he meant. Patient stated "I want to go home and they can't stop the inevitable." RN asked patient if he was still suicidal and patient states "I'm going to do what I'm going to do." RN advised patient that if he is actively suicidal, which he is, they won't let him go. Patient talked about him being difficult to place because when he gets angry, he get violent. RN has not observed anger or violence from patient. Patient went back to his bed. Continue to monitor.
[2019-09-17] MEDS: ciprofloxacin 250mg tablet PO SCH (10:21)
[2019-09-17] MEDS: diazepam 5mg tablet PO PRN (10:24)
--- NOTE | 2019-09-17 10:28 | NUR ---
giving break to primary nurse,pt scheduled cipro med given ,pt also c/o anxiety and requested for diazepam.pt medicated with prn diazepam med ,pt resting in bed now.denies any other concern.
--- NOTE | 2019-09-17 11:44 | NUR ---
Patient reclining in bed awake. No distress observed. Continue to monitor.
--- NOTE | 2019-09-17 13:20 | NUR ---
Patient sitting in room and eating lunch. No distress observed. Continue to monitor.
--- NOTE | 2019-09-17 14:35 | NUR ---
[facility] from [facility] speaking with patient at this time.
--- NOTE | 2019-09-17 14:54 | NUR ---
Broderick Epstein (contact lens blocker and cutter) [phone]
--- NOTE | 2019-09-17 15:18 | NUR ---
Elisa Kay (behavioral health case manager) [phone] Katelyn Ambrosio (therapist) [phone]
--- NOTE | 2019-09-17 15:36 | NUR ---
Patient wanting to have his daughter visit him as she is driving through town tomorrow in the morning on her way to [place]. Pt is possibly being discharged tomorrow. Continue to monitor.
--- NOTE | 2019-09-17 17:58 | NUR ---
Patient laying in bed awake. No distress observed. Continue to monitor.
--- NOTE | 2019-09-17 19:15 | NUR ---
The patient has been up on the unit and appears relaxed and is socializing with staff and peers. He cooperative with the evening assessment. Stated that his appetite is poor and he did refuse the evening meal. He stated "I'm depressed and suicidal" He stated his plan was to "Blow my head off" He also stated he had a lot of good things going for himself as well and is expecting to discharge tomorrow possibly. He denied psychosis and none was evident during the evening assessment. He has been cooperative with the unit routine. He has an IS at the bedside and was encouraged to keep using it at regular intervals. His able to get up to 750. His lung sounds are decreased throughout.
[2019-09-17] MEDS: magnesium hydroxide 30ml (MOM) UD suspension PO ONE ×2 (19:25→20:49)
--- NOTE | 2019-09-17 19:26 | NUR ---
The patient is reporting having no BM since admit to the ER. Provider made aware and order received.
[2019-09-17] MEDS: Melatonin 3mg tablet PO SCH (20:49)
[2019-09-17] MEDS: traZODone 150mg tablet PO SCH (20:50)
[2019-09-17] MEDS: prazosin 1mg capsule PO SCH (20:50)
--- NOTE | 2019-09-17 21:09 | NUR ---
The patient appears to be asleep on his bed.
--- NOTE | 2019-09-17 23:24 | NUR ---
The patient appears to be sleeping.
--- NOTE | 2019-09-18 01:31 | NUR ---
ASSUMED CARE OF PT FROM ENID SIMPSON, AT 0030. SHE RPEORTS PT HAS BEE COOPERATIVE AND NOT A PROBLEM THIS SHIFT. PT IS CURRENTLY SLEEPING, LYING ON HIS BACK WITH THE BLANKETS COVERING TO HIS WAIST. RR 14 AND UNLABORED. SITTER AND RN WITHIN VIEW OF PT AAT.
--- NOTE | 2019-09-18 02:22 | NUR ---
PT REMAINS ASLEEP. RR 14 AND UNLABORED. SITTER AND RN WITHIN VIEW OF PT AAT.
--- NOTE | 2019-09-18 03:42 | NUR ---
PT REMAINS ASLEEP. LYING ON HIS BACK WITH BLANKETS COVERING TO HIS WAIST. RR 14 AND UNLABORED. SITTER AND RN WITHIN VIEW OF PT AAT.
--- NOTE | 2019-09-18 04:30 | NUR ---
PT SLEPING PEACFULLY ON HIS RIGHT SIDE . RESP EVEN AND UNLBORED PT HOB ELEVATED 30 DEGREES WITH MULTIPLE PILLOWS POSITIONED FOR COMFORT
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
[2019-09-18] MEDS: HYDROcodone/acetaminophen 10/325mg tab PO PRN (05:42)
--- NOTE | 2019-09-18 05:46 | NUR ---
PT MEDICATED FOR DISCOMFORT/ PAIN WITH NORCO 10 . PT ALSO GIVEN A WARM BLANKET. AND PLAN OF CARE UPDATED WILL CONTINUE TTO REASSESSS NEEDED
[2019-09-18 05:49] VITALS: BP 119/68
--- NOTE | 2019-09-18 06:30 | NUR ---
PT IS RESTING IN BED. REPORT RECEIVED
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
[2019-09-18] MEDS: morphine ER 15mg tablet PO SCH (08:16)
--- NOTE | 2019-09-18 08:30 | NUR ---
PT IS RESTING
--- NOTE | 2019-09-18 09:30 | NUR ---
PT IS EATING BREAKFAST. GIVEN NEW SCRUBS AND SUPPLIES TO CLEAN UP
--- NOTE | 2019-09-18 10:23 | NUR ---
PT IS RESTING IN HIS ROOM
== END 2019-09-18 12:01 | disposition home or self-care (01) ==
LOC: ER 10:07
DX: F32.9 Major depressive disorder, single episode, unspecified (principal); R45.851 Suicidal ideations; I10 Essential (primary) hypertension; F15.90 Other stimulant use, unspecified, uncomplicated; Z86.19 Personal history of other infectious and parasitic diseases; Z86.14 Personal history of Methicillin resistant Staphylococcus aureus infection; Z89.022 Acquired absence of left finger(s); Z98.890 Other specified postprocedural states; Z91.018 Allergy to other foods; Z79.899 Other long term (current) drug therapy
CPT/HCPCS: 36415; 71045; 80053; 80305; 80320; 81001; 84443; 85025; 99285

== ENCOUNTER 2019-09-26 18:55 | Emergency (ER) | payer MEDICAID ==
[~2019-09-26] VITALS: Ht 175.3 cm; Wt 51.4 kg
[~2019-09-26 18:55] MED LIST changes: -ALBU8HFA PO; -FLUO20CA39 PO; -LISI-642 PO; -LORA1TAB PO; +MORP-92 PO; -PRAZ2CAP2 PO; -QUET-1 PO; +VAL5T PO
[2019-09-26] MEDS ORDERED: HYDROcodone/acetaminophen 10/325mg tab PO ONE (19:35)
[2019-09-26] MEDS ORDERED: LORazepam 1 MG tablet PO ONE (19:35)
[2019-09-26 20:07] LABS: BASOPHILS # (AUTO) 0.1 X10'3 (0-0.2); BASOPHILS % (AUTO) 1.2 % (0-1); EOSINOPHILS # (AUTO) 0.3 X10'3 (0-0.9); EOSINOPHILS % (AUTO) 4.2 % (0-6); HEMATOCRIT 40.7 % (42.0-52.0); HEMOGLOBIN 13.4 g/dl (14.0-17.9); LYMPHOCYTES # (AUTO) 1.7 X10'3 (1.1-4.8); LYMPHOCYTES % (AUTO) 24.6 % (21-51); MEAN CORPUSCULAR HGB CONC 32.9 g/dL (33.0-36.5); MEAN CORPUSCULAR VOLUME 100.4 FL (78-98); MEAN PLATELET VOLUME 7.6 FL (7.4-10.4); MONOCYTES # (AUTO) 0.4 X10'3 (0-0.9); MONOCYTES % (AUTO) 6.3 % (2-12); NEUTROPHILS # (AUTO) 4.4 X10'3 (1.8-7.7); NEUTROPHILS % (AUTO) 63.7 % (42-75); PLATELET COUNT 218 X10'3 (140-440); RED BLOOD COUNT 4.06 X10'6 (4.70-6.10); RED CELL DISTRIBUTION WIDTH 15.7 % (11.5-14.5)
[2019-09-26] MEDS ORDERED: TRAZ300T2 PO (20:10)
[2019-09-26] MEDS ORDERED: PRAZ1CAP2 PO (20:11)
[2019-09-26 20:18] LABS: ALANINE AMINOTRANSFERASE 22 U/L (12-78); ALBUMIN 3.1 G/DL (3.4-5.0); ALBUMIN/GLOBULIN RATIO 0.9 (1.1-1.5); ALKALINE PHOSPHATASE 147 IU/L (46-116); ANION GAP 6 (8-16); ASPARTATE AMINO TRANSFERASE 20 U/L (10-37); BILIRUBIN,TOTAL 0.2 MG/DL (0.1-1.0); BLOOD UREA NITROGEN 8 MG/DL (7-18); CALCIUM 8.5 MG/DL (8.5-10.1); CHLORIDE 110 MMOL/L (99-107); ETHANOL < 0.010 GM/DL (0.0-0.010); GLUCOSE 94 MG/DL (70-104); POTASSIUM 4.4 MMOL/L (3.5-5.1); SODIUM 145 MMOL/L (135-145); TOTAL CARBON DIOXIDE 29.4 MMOL/L (24-32); TOTAL PROTEIN 6.5 G/DL (6.4-8.2); eGFR > 90 ML/MIN
[2019-09-26 20:21] LABS: URINE AMPHETAMINE SCREEN NEGATIVE (Neg); URINE BARBITUATE SCREEN NEGATIVE (Neg); URINE BENZODIAZEPINES SCREEN POSITIVE (Neg); URINE CANNABINOID SCREEN NEGATIVE (Neg); URINE COCAINE SCREEN NEGATIVE (Neg); URINE METHADONE SCREEN NEGATIVE (Neg); URINE OPIATE SCREEN POSITIVE (Neg); URINE PHENCYCLIDINE SCREEN NEGATIVE (Neg)
[2019-09-26] MEDS: traZODone 150mg tablet PO SCH (20:53)
[2019-09-26] MEDS: prazosin 1mg capsule PO SCH (20:53)
--- NOTE | 2019-09-26 21:25 | NUR ---
pt is sleeping, no s/s of distress noted.
--- NOTE | 2019-09-26 22:03 | NUR ---
pt is sleeping, no s/s of distress noted.
--- NOTE | 2019-09-27 02:21 | NUR ---
pt continues to sleep, no s/s of distress noted, rr unlabored.
--- NOTE | 2019-09-27 03:54 | NUR ---
Packet sent to [facility] office.
--- NOTE | 2019-09-27 04:14 | NUR ---
pt continues to sleep, no s/s of distress noted, rr unlabored.
[2019-09-27] MEDS: HYDROcodone/acetaminophen 10/325mg tab PO PRN ×3 (06:08→20:12)
[2019-09-27] MEDS: diazepam 5mg tablet PO PRN (06:33)
[2019-09-27 06:45] LABS: CLARITY,URINE CLEAR (Clear); COLOR,URINE YELLOW (Yellow); GLUCOSE, URINE NEGATIVE (Neg); KETONES,URINE NEGATIVE (Neg); LEUKOCYTE ESTERASE ,URINE NEGATIVE (Neg); NITRITES, URINE NEGATIVE (Neg); OCCULT BLOOD,URINE SMALL (Neg); PROTEIN,URINE NEGATIVE (Neg); UA COLLECTION TYPE CLN CATCH MIDSTREAM; UROBILINOGEN,URINE 0.2 E.U/dL (0.2-1.0)
[2019-09-27 06:51] LABS: BACTERIA,URINE FEW /HPF (Neg); MUCUS STRANDS FEW /LPF (Neg); RBC,URINE 0-2 /HPF (0-2); SQUAMOUS EPITHELIAL CELL,UR FEW /LPF (FEW); WBC,URINE 0-4 /HPF (0-4)
--- NOTE | 2019-09-27 07:06 | NUR ---
resting in bed
[2019-09-27] MEDS ORDERED: lisinopril 10 MG tablet PO SCH (09:00)
[2019-09-27] MEDS ORDERED: lisinopril 10 MG tablet PO ONE (09:00)
[2019-09-27] MEDS ORDERED: lisinopril 5mg tablet PO SCH ×2 (09:00)
[2019-09-27] MEDS ORDERED: lisinopril 5mg tablet PO ONE (09:00)
--- NOTE | 2019-09-27 09:06 | NUR ---
resting in bedroom
[2019-09-27] MEDS: lisinopril 5mg tablet PO SCH (09:23)
[2019-09-27] MEDS ORDERED: oxyCODONE IR 5mg (immed. release) tablet PO ONE (10:05)
--- NOTE | 2019-09-27 10:12 | NUR ---
talking with [facility]
--- NOTE | 2019-09-27 10:30 | NUR ---
[facility] worker at bedside.
[2019-09-27] MEDS ORDERED: CITA20TA28 PO (11:33)
[2019-09-27] MEDS: citalopram 20mg tablet PO SCH (11:47)
--- NOTE | 2019-09-27 12:31 | NUR ---
Patient on supine,asleep,we will monitor.
--- NOTE | 2019-09-27 13:11 | NUR ---
resting in bed
--- NOTE | 2019-09-27 17:01 | NUR ---
resting in bed
[2019-09-27] MEDS: traZODone 150mg tablet PO SCH (20:12)
[2019-09-27] MEDS: prazosin 1mg capsule PO SCH (20:12)
--- NOTE | 2019-09-27 21:48 | NUR ---
pt is sleeping, no s/s distress noted, rr unlabored.
--- NOTE | 2019-09-27 23:01 | NUR ---
pt is sleeping, no s/s distress noted, rr unlabored.
--- NOTE | 2019-09-28 00:15 | NUR ---
pt continues to sleep, rr unlabored, will continue to monitor.
--- NOTE | 2019-09-28 01:59 | NUR ---
pt continues to sleep, rr unlabored, will continue to monitor.
[2019-09-28] MEDS: HYDROcodone/acetaminophen 10/325mg tab PO PRN (05:59)
--- NOTE | 2019-09-28 06:19 | NUR ---
Patient is awake at change of shift and is asking for pain killers. He says he does not want morphine. He also asks for markers to complete the journal his therapist gave him.
[2019-09-28] MEDS: lisinopril 5mg tablet PO SCH (07:18)
[2019-09-28] MEDS: citalopram 20mg tablet PO SCH (07:18)
[2019-09-28] MEDS: diazepam 5mg tablet PO PRN (07:18)
[2019-09-28] MEDS ORDERED: lisinopril 5mg tablet PO SCH (08:00)
--- NOTE | 2019-09-28 08:06 | NUR ---
Pt ate all of his breakfast and is now reading his book. Dr. Iyer provided an extra does of pain medicine for pt.
[2019-09-28] MEDS ORDERED: HYDROcodone/acetaminophen 10/325mg tab PO ONE (09:15)
--- NOTE | 2019-09-28 09:50 | NUR ---
Pt sleeping in bed on right side. No distress noted. Equal unlabored respirations.
--- NOTE | 2019-09-28 11:49 | NUR ---
Pt awake and having a snack
--- NOTE | 2019-09-28 13:24 | NUR ---
Pt ate all lunch and is now reading
--- NOTE | 2019-09-28 15:08 | NUR ---
Pt talking to his sister on the phone
--- NOTE | 2019-09-28 16:46 | NUR ---
Phone call from Karen at [facility] stating that client is accepted at [facility] as of [address] Juarez.
[2019-09-28 17:26] VITALS: BP 162/90
--- NOTE | 2019-09-28 17:27 | NUR ---
Pt awake for vital signs
--- NOTE | 2019-09-28 17:40 | NUR ---
Pt escorted upstairs to [facility].
== END 2019-09-28 17:40 | disposition home or self-care (01) ==
LOC: ER 18:56
DX: F32.9 Major depressive disorder, single episode, unspecified (principal); R31.9 Hematuria, unspecified; G89.29 Other chronic pain; I10 Essential (primary) hypertension; F15.90 Other stimulant use, unspecified, uncomplicated; F10.10 Alcohol abuse, uncomplicated; Z86.19 Personal history of other infectious and parasitic diseases; Z86.14 Personal history of Methicillin resistant Staphylococcus aureus infection; Z91.018 Allergy to other foods; Z79.899 Other long term (current) drug therapy; Y90.9 Presence of alcohol in blood, level not specified
CPT/HCPCS: 36415; 80053; 80305; 80320; 81001; 85025; 99284; 99285

== ENCOUNTER 2019-09-28 15:36 | Inpatient (IN) | payer MEDICAID ==
[~2019-09-28] VITALS: Ht 175.3 cm; Wt 56.0 kg
[~2019-09-28 15:36] MED LIST changes: +CITA20TA28 PO; -MORP-92 PO; +PRAZ1CAP2 PO; +TRAZ300T2 PO
[2019-09-28] MEDS ORDERED: magnesium hydroxide 30ml (MOM) UD suspension PO PRN (18:00)
[2019-09-28] MEDS ORDERED: loperamide 2mg capsule PO PRN (18:00)
[2019-09-28] MEDS ORDERED: NICOTINE POLACRILEX 2 MG LOZENGE BC PRN (18:00)
[2019-09-28] MEDS ORDERED: quetiapine 100mg tablet PO PRN (18:00)
[2019-09-28] MEDS ORDERED: mag hydrox/Alum hydrox/simeth 30ml oral suspension PO PRN (18:00)
[2019-09-28] MEDS ORDERED: traZODone 50mg tablet PO PRN (18:00)
[2019-09-28] MEDS ORDERED: acetaminophen 325mg tablet PO PRN ×2 (18:00)
[2019-09-28] MEDS ORDERED: HYDROcodone/acetaminophen 10/325mg tab PO SCH (18:10)
[2019-09-28 18:30] VITALS: BP 172/96
[2019-09-28] MEDS: LORazepam 1 MG tablet PO PRN (19:39)
[2019-09-28] MEDS ORDERED: diazepam 5mg tablet PO PRN (19:45)
[2019-09-28 19:52] VITALS: BP 107/66
[2019-09-28] MEDS: prazosin 1mg capsule PO SCH (20:09)
[2019-09-28] MEDS: traZODone 150mg tablet PO SCH (20:09)
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
[2019-09-29] MEDS: HYDROcodone/acetaminophen 10/325mg tab PO PRN ×2 (03:09→10:17)
[2019-09-29] MEDS: citalopram 20mg tablet PO SCH (07:12)
[2019-09-29] MEDS: LORazepam 1 MG tablet PO PRN (07:12)
[2019-09-29 07:35] VITALS: BP 98/56
[2019-09-29 08:07] LABS: HEMOGLOBIN A1C 4.9 % (4.5-6.2)
[2019-09-29 08:12] LABS: CHOL/HDL RATIO 2.6 (0.00-4.99); CHOLESTEROL 153 MG/DL (0-200); HDL CHOLESTEROL 60 MG/DL (35-60); LDL CHOLESTEROL 76 MG/DL (50-100); TRIGLYCERIDES 87 MG/DL (20-135)
[2019-09-29 08:20] VITALS: BP 92/62
[2019-09-29] MEDS: nicotine 7mg patch - 24hr TD SCH (12:58)
[2019-09-29] MEDS: diazepam 5mg tablet PO SCH ×3 (13:00→21:00)
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
[2019-09-29 18:30] VITALS: BP 112/68
[2019-09-29] MEDS ORDERED: prazosin 1mg capsule PO ONE (18:30)
[2019-09-29] MEDS ORDERED: traZODone 150mg tablet PO ONE (18:30)
[2019-09-29] MEDS: HYDROcodone/acetaminophen 10/325mg tab PO SCH ×2 (18:33→18:35)
[2019-09-29] MEDS: traZODone 150mg tablet PO SCH (18:34)
[2019-09-29] MEDS: prazosin 1mg capsule PO SCH (18:34)
[2019-09-29 20:00] VITALS: BP 112/68
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
[2019-09-30] MEDS: diazepam 5mg tablet PO PRN (05:48)
[2019-09-30] MEDS: citalopram 20mg tablet PO SCH (07:31)
[2019-09-30] MEDS: HYDROcodone/acetaminophen 10/325mg tab PO SCH ×3 (07:31→20:14)
[2019-09-30] MEDS: diazepam 5mg tablet PO SCH ×3 (07:31→20:15)
[2019-09-30] MEDS: nicotine 7mg patch - 24hr TD SCH (07:33)
[2019-09-30 08:53] VITALS: BP 117/75
[2019-09-30] MEDS: HYDROcodone/acetaminophen 10/325mg tab PO PRN (16:02)
--- NOTE | 2019-09-30 16:37 | NUR ---
NURSING PROGRESS NOTE: Richaremigdio Legal hold: LPS Client on involuntary status for GD Report received from Noc Shift RN, with use of SBAR Why are they here: Patient had been discharged previously with follow up at [facility]. Upon assessment by the [facility], it was determined patient was not able to obtain, food, fpc, or clothing and a 5150 for GD was written. Patient returned within hours of discharge. At time of return patient denied any symptoms related to his mental illness diagnosis of Schizophrenia. He continues to present with cognitive impairment which impedes his ability to care of himself, and requires multiple supports and external structures. Assessment What has happened this shift: Client was in bed to begin the shift but woke easily for medications and assessment. Compliant with all aspects of his care and currently has no somatic complaints. At 1000 hors, client was noted to be in his bed resting with eyes closed. Respirations are even and unlabored.Client was up for lunch and was visible on the unit until he went to rest in his room. He has had no behavioral issues this shift and was compliant with all aspects of his care. S/I, H/I: Denies. A/VH: Denies. Sleep: ADL's: Independent. Group attendance: N/A Were meds taken: Yes Any med S/E: None noted or observed Mental Status Exam Appearance: Slightly disheveled. Eye contact: Good. Behavior: Cooperative and pleasant. Speech: Normal rate and rhythm Mood: Feeling good, being social. Affect: Congruent with mood. Thought process: Circumstantial Thought Content: Desires snacks Cognition: Alert and oriented X4. Insight: Fair. Judgment: Fair. Interventions PRN's used: [place] x 1 Therapeutic interventions: 1:1 assessment, therapeutic conversation, active listening, maintained a safe and therapeutic environment, medication administration/education/monitoring, encouragement to choose healthy snacks and use elliptical machine, Q 15 min safety checks. Restraints/seclusion/emergency medication: N/A Justification of Continued Inpatient Treatment: Pt. continues to require a safe and supportive environment, and remains GD r/t mental health. He is LPS conserved and awaiting IMD placement. Addendum: 09/30/19 at 1641 by Brendon Spence RN This entry made in error.
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
[2019-09-30 20:00] VITALS: BP 134/76
[2019-09-30] MEDS: prazosin 1mg capsule PO SCH (20:14)
[2019-09-30] MEDS: traZODone 150mg tablet PO SCH (20:14)
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
[2019-10-01] MEDS: HYDROcodone/acetaminophen 10/325mg tab PO SCH ×3 (07:16→21:05)
[2019-10-01] MEDS: diazepam 5mg tablet PO SCH ×3 (07:16→17:00)
[2019-10-01] MEDS: citalopram 20mg tablet PO SCH (07:16)
[2019-10-01 07:40] LABS: CLARITY,URINE CLEAR (Clear); COLOR,URINE YELLOW (Yellow); GLUCOSE, URINE NEGATIVE (Neg); KETONES,URINE NEGATIVE (Neg); LEUKOCYTE ESTERASE ,URINE NEGATIVE (Neg); NITRITES, URINE NEGATIVE (Neg); OCCULT BLOOD,URINE TRACE-INTACT (Neg); PH,URINE 6.5 (4.8-8.0); PROTEIN,URINE NEGATIVE (Neg); UROBILINOGEN,URINE 0.2 E.U/dL (0.2-1.0)
[2019-10-01 07:45] LABS: UA COLLECTION TYPE CLN CATCH MIDSTREAM
[2019-10-01] MEDS: nicotine 7mg patch - 24hr TD SCH (07:45)
[2019-10-01 07:48] LABS: BACTERIA,URINE NONE SEEN /HPF (Neg); MUCUS STRANDS NONE SEEN /LPF (Neg); RBC,URINE NONE SEEN /HPF (0-2); SQUAMOUS EPITHELIAL CELL,UR FEW /LPF (FEW); WBC,URINE NONE SEEN /HPF (0-4)
[2019-10-01 08:35] VITALS: BP 129/89
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
[2019-10-01] MEDS: HYDROcodone/acetaminophen 10/325mg tab PO PRN (11:29)
[2019-10-01] MEDS ORDERED: cloNIDine 0.1 mg tablet PO ONE (15:25)
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
[2019-10-01] MEDS: diazepam 5mg tablet PO PRN (19:00)
[2019-10-01 20:00] VITALS: BP 138/75
[2019-10-01] MEDS: traZODone 50mg tablet PO SCH (20:31)
[2019-10-01] MEDS: olanzapine 10mg tablet PO SCH (20:31)
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
[2019-10-02] MEDS: HYDROcodone/acetaminophen 10/325mg tab PO SCH ×3 (07:12→20:16)
[2019-10-02] MEDS: diazepam 5mg tablet PO SCH ×2 (07:13→17:43)
[2019-10-02 08:28] VITALS: BP 146/86
[2019-10-02 08:40] VITALS: BP 140/86
[2019-10-02] MEDS: cloNIDine 0.1 mg tablet PO SCH ×2 (08:43→15:47)
[2019-10-02] MEDS: citalopram 20mg tablet PO SCH (08:43)
[2019-10-02] MEDS: nicotine 7mg patch - 24hr TD SCH (08:45)
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
[2019-10-02] MEDS ORDERED: cloNIDine 0.1 mg tablet PO ONE (12:10)
[2019-10-02 12:22] VITALS: BP 115/60
--- NOTE | 2019-10-02 12:23 | NUR ---
Nursing Note: Pt. continues to report increased anxiety, Dr. Juarez notified and obtained order to administer 0.1mg one-time order of Clonidine. Obtained BP and heart rate and are within parameters. Per Dr. Juarez, continue to monitor and administer 0.05 dose later as scheduled.
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
[2019-10-02 15:46] VITALS: BP 120/80
[2019-10-02 20:00] VITALS: BP 157/92
[2019-10-02] MEDS: olanzapine 10mg tablet PO SCH (20:16)
[2019-10-02] MEDS: traZODone 50mg tablet PO SCH (20:21)
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
[2019-10-03] MEDS: HYDROcodone/acetaminophen 10/325mg tab PO PRN ×2 (06:17→07:50)
[2019-10-03] MEDS: citalopram 20mg tablet PO SCH (07:47)
[2019-10-03] MEDS: HYDROcodone/acetaminophen 10/325mg tab PO SCH ×3 (07:51→20:10)
[2019-10-03] MEDS: diazepam 5mg tablet PO SCH ×2 (07:51→17:07)
[2019-10-03] MEDS: nicotine 7mg patch - 24hr TD SCH (07:52)
[2019-10-03 08:00] VITALS: BP 158/107
[2019-10-03] MEDS ORDERED: cloNIDine 0.1 mg tablet PO SCH (08:00)
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
[2019-10-03] MEDS: diazepam 5mg tablet PO PRN (11:20)
[2019-10-03] MEDS ORDERED: oxcarbazepine 150mg tablet PO ONE (12:30)
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
--- NOTE | 2019-10-03 16:30 | NUR ---
Initial: Pt admit w/ homicidal ideation low BMI 16.9 noted 52kg standing scale. Pt has normal strength, no edema/wounds, PO mostly 100% avg regular diet meeting needs, and stable wt hx compared to multiple prior admits. LBM 09/30. At this time does not meet malnutrition criteria and no nutrition concerns. Rec: 1. continue regular diet 2. bowel care as needed 3. wt per rx Addendum: 10/03/19 at [address] Amended: Links added.
[2019-10-03 20:00] VITALS: BP 110/78
[2019-10-03] MEDS: traZODone 50mg tablet PO SCH (20:02)
[2019-10-03] MEDS: OLANZAPINE 5 MG TABLET PO SCH (20:02)
[2019-10-03] MEDS: oxcarbazepine 150mg tablet PO SCH (20:03)
[2019-10-04 03:27] VITALS: BP 110/78
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
[2019-10-04] MEDS: oxcarbazepine 150mg tablet PO SCH ×2 (07:18→20:05)
[2019-10-04] MEDS: diazepam 5mg tablet PO SCH ×2 (07:18→16:02)
[2019-10-04] MEDS: HYDROcodone/acetaminophen 10/325mg tab PO PRN ×2 (07:18→12:04)
[2019-10-04] MEDS: citalopram 20mg tablet PO SCH (07:18)
[2019-10-04] MEDS: nicotine 7mg patch - 24hr TD SCH (07:20)
[2019-10-04 07:30] VITALS: BP 150/103
[2019-10-04] MEDS: HYDROcodone/acetaminophen 10/325mg tab PO SCH ×2 (08:00→20:20)
[2019-10-04 08:15] VITALS: BP 142/86
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
[2019-10-04 19:45] VITALS: BP 182/99
[2019-10-04] MEDS: traZODone 50mg tablet PO SCH (20:05)
[2019-10-04] MEDS: OLANZAPINE 5 MG TABLET PO SCH (20:05)
[2019-10-05] MEDS: diazepam 5mg tablet PO PRN ×2 (02:46→19:39)
[2019-10-05] MEDS: HYDROcodone/acetaminophen 10/325mg tab PO PRN ×2 (03:11→15:56)
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
[2019-10-05] MEDS: HYDROcodone/acetaminophen 10/325mg tab PO SCH ×3 (07:41→20:15)
[2019-10-05] MEDS: citalopram 20mg tablet PO SCH (07:41)
[2019-10-05] MEDS: diazepam 5mg tablet PO SCH ×2 (07:41→17:25)
[2019-10-05] MEDS: nicotine 7mg patch - 24hr TD SCH (07:42)
[2019-10-05] MEDS: oxcarbazepine 150mg tablet PO SCH ×2 (07:42→20:14)
[2019-10-05 07:54] VITALS: BP 167/92
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
[2019-10-05 19:54] VITALS: BP 141/91
[2019-10-05] MEDS: traZODone 50mg tablet PO SCH (20:14)
[2019-10-05] MEDS ORDERED: OLANZAPINE 5 MG TABLET PO SCH (21:00)
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
[2019-10-06] MEDS: HYDROcodone/acetaminophen 10/325mg tab PO PRN ×2 (06:18→07:42)
[2019-10-06] MEDS: nicotine 7mg patch - 24hr TD SCH (07:38)
[2019-10-06] MEDS: citalopram 20mg tablet PO SCH (07:38)
[2019-10-06] MEDS: oxcarbazepine 150mg tablet PO SCH ×2 (07:39→20:24)
[2019-10-06] MEDS: diazepam 5mg tablet PO SCH ×2 (07:39→17:03)
[2019-10-06 08:00] VITALS: BP 140/92
[2019-10-06] MEDS: HYDROcodone/acetaminophen 10/325mg tab PO SCH ×3 (08:12→20:26)
[2019-10-06] MEDS: diazepam 5mg tablet PO PRN (09:37)
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
[2019-10-06 16:39] LABS: ALANINE AMINOTRANSFERASE 23 U/L (12-78); ALBUMIN 2.9 G/DL (3.4-5.0); ANION GAP 5 (8-16); ASPARTATE AMINO TRANSFERASE 19 U/L (10-37); BLOOD UREA NITROGEN 20 MG/DL (7-18); BUN/CREATININE RATIO 16.8 (5.4-32.0); CALCIUM 8.9 MG/DL (8.5-10.1); CHLORIDE 105 MMOL/L (99-107); CREATININE 1.19 MG/DL (0.60-1.10); GLUCOSE 93 MG/DL (70-104); POTASSIUM 4.1 MMOL/L (3.5-5.1); SODIUM 142 MMOL/L (135-145); TOTAL CARBON DIOXIDE 32.3 MMOL/L (24-32); eGFR 63 ML/MIN
[2019-10-06 16:50] LABS: ALBUMIN/GLOBULIN RATIO 0.9 (1.1-1.5); ALKALINE PHOSPHATASE 87 IU/L (46-116); BILIRUBIN,TOTAL 0.2 MG/DL (0.1-1.0); TOTAL PROTEIN 6.3 G/DL (6.4-8.2)
[2019-10-06 20:00] VITALS: BP 155/94
[2019-10-06] MEDS: OLANZAPINE 5 MG TABLET PO SCH (20:23)
[2019-10-06] MEDS: traZODone 50mg tablet PO SCH (20:24)
[2019-10-06 20:53] LABS: ALBUMIN 3.4 G/DL (3.4-5.0); ANION GAP 2 (8-16); BLOOD UREA NITROGEN 18 MG/DL (7-18); BUN/CREATININE RATIO 14.9 (5.4-32.0); CALCIUM 9.4 MG/DL (8.5-10.1); CHLORIDE 104 MMOL/L (99-107); CREATININE 1.21 MG/DL (0.60-1.10); GLUCOSE 133 MG/DL (70-104); POTASSIUM 4.5 MMOL/L (3.5-5.1); SODIUM 140 MMOL/L (135-145); eGFR 62 ML/MIN
[2019-10-07] MEDS: traZODone 50mg tablet PO SCH ×3 (00:58→23:24)
[2019-10-07] MEDS: HYDROcodone/acetaminophen 10/325mg tab PO PRN (03:35)
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
[2019-10-07] MEDS: diazepam 5mg tablet PO PRN (05:40)
[2019-10-07] MEDS: diazepam 5mg tablet PO SCH ×2 (07:50→17:09)
[2019-10-07] MEDS: citalopram 20mg tablet PO SCH (07:50)
[2019-10-07] MEDS: HYDROcodone/acetaminophen 10/325mg tab PO SCH ×3 (07:53→20:19)
[2019-10-07] MEDS: nicotine 7mg patch - 24hr TD SCH ×2 (07:54→08:00)
[2019-10-07] MEDS: oxcarbazepine 150mg tablet PO SCH ×2 (07:54→20:20)
[2019-10-07 08:37] VITALS: BP 108/78
--- NOTE | 2019-10-07 10:00 | NUR ---
Group Therapy: Process Group This Clinicians goals for this process group were as follows: (1) Ask scaling questions about Patients current anxiety, depression, and irritability symptoms as a check-in. (2) Share psychoeducation about emotional escalation as it relates to stress and negative symptoms, Fight, flight, freeze. (3) Share psychoeducation on principles of mindfulness and emotional relaxation techniques that Patients may utilize to reduce the acuity of unwanted emotional escalation. (4) Provide psychoeducation on the STOPP acronym: Stop, Take a Breath, Observe the situation, Put things into perspective, and, Practice what works. (5) Process Clients thoughts and reflections on this topic within the group milieu. Patient identified experiencing the following levels of anxiety, depression, and anger/irritability while present in the group milieu. Anxiety: 05/03 Depression: 05/03 Anger/irritability: 06/03 Patient presented as open and cooperative within the group milieu. Patient was dressed in nondescript clothing that was appropriate within the group milieu. Patient presented as nonobtrusive. Patient verbalized the importance of using, "Coping skills," to calm down in the context of the discussion of the STOPP method to reduce symptoms of unwanted emotional escalation. During the discussion on T in the STOPP method, or, "Take a breath," this Clinician observed Patient taking several controlled breaths as this Clinician modeled the practice for patients within the group milieu. Vladimir Bar MA, ALEJANDRO Addendum: 10/08/19 at 0837 by Vladimir Bar SS Amended: Links added.
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
[2019-10-07] MEDS: OLANZAPINE 5 MG TABLET PO SCH (20:19)
[2019-10-07 20:35] VITALS: BP 127/84
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
[2019-10-08] MEDS: HYDROcodone/acetaminophen 10/325mg tab PO PRN (04:56)
[2019-10-08 07:39] VITALS: BP 142/108
[2019-10-08] MEDS: HYDROcodone/acetaminophen 10/325mg tab PO SCH ×3 (07:58→20:05)
[2019-10-08] MEDS: diazepam 5mg tablet PO SCH ×2 (07:58→17:09)
[2019-10-08] MEDS: citalopram 20mg tablet PO SCH (07:58)
[2019-10-08] MEDS: oxcarbazepine 150mg tablet PO SCH ×2 (07:58→20:05)
--- NOTE | 2019-10-08 10:00 | NUR ---
Group Therapy: Process Group This Clinicians goals for this process group were as follows: (1) Ask scaling questions about Patients current anxiety, depression, and irritability symptoms as a check-in. (2) Share psychoeducation about automatic thoughts and cognitive distortions. (3) Share psychoeducation on CBT thought-stopping and, thought-reframing. (4) Discuss strategies for identifying negative, unhelpful, and/or irrational thoughts as quickly as possible to avoid unwanted escalation of mental health symptoms. (5) Process Clients thoughts and reflections on this topic within the group milieu. Patient identified experiencing the following levels of anxiety, depression, and anger/irritability while present in the group milieu. Anxiety: 05/03 Depression: 05/03 Anger/irritability: 05/03 Patient presented as open and cooperative within the group milieu. Patient was dressed in nondescript clothing that was appropriate for the milieu. Patient presented as verbally engaged and nonobtrusive within the group milieu. He participated in the discussion on automatic thoughts, thinking errors, and CBT thought-stopping and thought-reframes. Patient shared that he often finds that when he becomes emotionally triggered by feelings of anger, that he becomes very angry, very quickly. Patient acknowledged that he has a good support system around him who can assist him if he needs help in redirecting some of his unhelpful thoughts. He mentioned that he has a psychiatrist, a watch case polisher and a therapist who can assist him, if he is unable to reframe some of his unhelpful, unbalanced, and/or irrational thoughts. Vladimir Bar MA, ALEJANDRO Addendum: 10/09/19 at 0822 by Vladimir Bar Amended: Links added.
[2019-10-08] MEDS ORDERED: CITALOpram 10mg tablet PO ONE (10:05)
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
[2019-10-08 20:00] VITALS: BP 170/98
[2019-10-08] MEDS: OLANZAPINE 5 MG TABLET PO SCH (20:04)
[2019-10-08] MEDS: traZODone 50mg tablet PO SCH (20:05)
[2019-10-08] MEDS ORDERED: OLANZAPINE 5 MG TABLET PO SCH (21:00)
[2019-10-08] MEDS ORDERED: traZODone 50mg tablet PO SCH (21:00)
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
[2019-10-09] MEDS: HYDROcodone/acetaminophen 10/325mg tab PO PRN (03:00)
[2019-10-09] MEDS: diazepam 5mg tablet PO PRN (04:34)
[2019-10-09] MEDS: oxcarbazepine 150mg tablet PO SCH (07:38)
[2019-10-09] MEDS: HYDROcodone/acetaminophen 10/325mg tab PO SCH ×2 (07:39→12:57)
[2019-10-09] MEDS: diazepam 5mg tablet PO SCH (07:40)
[2019-10-09 07:45] VITALS: BP 155/90
[2019-10-09] MEDS ORDERED: citalopram 20mg tablet PO SCH (08:00)
--- NOTE | 2019-10-09 10:00 | NUR ---
Group Therapy: Process Group This Clinicians goals for this process group were as follows: (1) Ask scaling questions about patients current anxiety, depression, and irritability symptoms as a check-in. (2) Share psychoeducation about emotional/situational triggers as they relate to the onset of unwanted mental health symptoms. (3) Identify examples of emotional/situational triggers within the group milieu. (4) Share psychoeducation on interventions as tools to reduce emotional escalation. (5) Identify several interventions within the group milieu that patients may utilizing in reducing emotional escalation caused by emotional/situational triggers. (6) Engage patients in discussion of the topics shared within the group milieu. Patient identified experiencing the following levels of anxiety, depression, and anger/irritability while present in the group milieu. Anxiety: 05/03 Depression: 05/03 Anger/irritability: 05/03 Patient presented as open and cooperative within the group milieu. Patient was dressed in a personal nondescript t-shirt and [facility] scrub bottoms that were appropriate for the situation. Patient was verbally engaged and nonobtrusive during the process group that addressed the topic of emotional/situational triggers and coping skills/interventions that one could utilize to reduce maladaptive symptoms of emotional escalation. This Clinician noted that Patient left group on a prior day last week, when this Clinician addressed this topic, stating that he was being, "Triggered." Due to this recollection, this Clinician encouraged Patient to only participate in a fashion in which he felt comfortable. Today, per this Clinician's impression, Patient was able to maintain his composure at all times, and verbally participate, often making insightful comments about using positive coping skills to avoid becoming emotionally triggered. This Clinician expressed appropriate clinical praise to Client, validating his ability to stay present during the process group without leaving. Vladimir Bar MA, [employer] 12 [employer]ER Addendum: 10/10/19 at 0830 by Vladimir Bar Amended: Links added.
[2019-10-09] MEDS ORDERED: OXCA300T16 PO (10:04)
[2019-10-09] MEDS ORDERED: VAL5T PO (10:04)
[2019-10-09] MEDS ORDERED: OLAN15TA20 PO (10:04)
[2019-10-09] MEDS ORDERED: CITA40TA22 PO (10:04)
[2019-10-09] MEDS ORDERED: HYDR-4353 PO (10:04)
[2019-10-09] MEDS ORDERED: TRAZ-251 PO (10:04)
[2019-10-09] MEDS ORDERED: PRAZ1CAP2 PO (10:04)
--- NOTE | 2019-10-09 16:00 | NUR ---
Discharge Note: Pt discharged at 1515. He was escorted out of the unit by PEYMAN Gilbert and a security project manager. Pt transported via [facility] to his home. Pt was ambulatory with no S&S of distress. Possessions were inventoried with PEYMAN Murray. Pt provided discharge instruction and offered opportunity to ask questions. Community crisis information and national suicide hotline handout given. He was pleasant and cooperative. Pt denies depression, anxiety, SI/HI, and A/V H. He states he is better able to handle his anger issues. He describes using his coping skills, such as walking, to help control his emotions. Appointments include: psychiatrist Dr. Mcenal on 10/10 at 1300, PCP LIZETTE Victoria on 10/09. Pt will make an appointment with [facility] for psychotherapy. He has improved since admission. No acute physical or emotional distress.
== END 2019-10-09 15:15 | disposition home or self-care (01) | DRG 751 ==
LOC: ADULT MH 15:36
PROVIDERS: ADMIT Psychiatry & Neurology Psychiatry; ATTEND Psychiatry & Neurology Psychiatry
DX: F33.2 Major depressive disorder, recurrent severe without psychotic features (principal); R45.851 Suicidal ideations; E11.9 Type 2 diabetes mellitus without complications; F17.210 Nicotine dependence, cigarettes, uncomplicated; F43.10 Post-traumatic stress disorder, unspecified; I10 Essential (primary) hypertension; Z79.899 Other long term (current) drug therapy; Z81.1 Family history of alcohol abuse and dependence; Z81.8 Family history of other mental and behavioral disorders; Z82.3 Family history of stroke; Z83.3 Family history of diabetes mellitus; Z86.14 Personal history of Methicillin resistant Staphylococcus aureus infection; Z86.73 Personal history of transient ischemic attack (TIA), and cerebral infarction without residual deficits; B19.20 Unspecified viral hepatitis C without hepatic coma; F41.9 Anxiety disorder, unspecified
CPT/HCPCS: 36415; 80048; 80053; 80061; 81001; 83036; 87081; 99285